=== PATIENT | female | born 2000 | race Caucasian/White ===

== ENCOUNTER 2024-03-18 00:38 | Outpatient (CLI) | payer OTHER ==
[~2024-03-18] VITALS: Ht 170.2 cm; Wt 84.1 kg
--- NOTE | 2024-03-18 00:50 | NUR ---
PT ARRIVED TO [facility] PER WITH S.O. WITH COMPLAINT OF CONTRACTIONS STARTING TO BECOME MORE REGULAR ABOUT 4-5 HOURS AGO. REPORTS ACTIVE MOVEMENT. DENIES ROM. STATES SHE HAD A LITTLE SPOTTING AFTER SVE IN OFFICE IN THE MORNING. STATES SHE WAS 3CM DILATED. PT TO BR TO VOID THEN PLACED ON MONITOR. [id number] ON. PT STATES SHE HAS RECEIVED CARE FOR WHOLE AT [facility] WITH CLAUDIA JANE CNM. DENIES ANY COMPLICATIONS WITH . STATES THAT SHE PASSED HER GTT AND IS GBS NEGATIVE. CONSENT WILL BE SIGNED FOR RELEASE OF INFORMATION FROM [facility]. STATES THAT SHE DOES NOT WANT TO DELIVER ON [facility] BECAUSE HER S.O. WAS NOT GOING TO BE ALLOWED IN DELIVERY ROOM. STATES SHE WAS SCHEDULED TO BE INDUCED ON 03/18 BUT IF SHE WENT INTO LABOR PRIOR TO THAT SHE PLANNED TO DELIVER ELSEWHERE. DISCUSSED POC AND EVAL FOR LABOR.
[2024-03-18 00:55] VITALS: BP 132/80; PULSE 92; TEMP 98
[2024-03-18] MEDS ORDERED: LR 1,000 ML IV PRN (01:00)
[2024-03-18] MEDS ORDERED: PRENATAL TABLET PO (01:22)
[2024-03-18 02:45] VITALS: BP 132/83; PULSE 78
== END 2024-03-18 02:50 | disposition home or self-care (01) ==
LOC: LDRO 00:38 → LDR 01:00 → LDRO 02:50
DX: O47.1 False labor at or after 37 completed weeks of gestation (principal)
CPT/HCPCS: OP

== ENCOUNTER 2024-03-18 15:31 | Outpatient (CLI) | payer OTHER ==
[2024-03-18] VITALS (7 sets, daily range): BP systolic 116–134; BP diastolic 62–89; PULSE 67–100; TEMP 98.1
[~2024-03-18] VITALS: Ht 170.2 cm; Wt 84.1 kg
[~2024-03-18 15:31] MED LIST: PRENATAL TABLET PO
--- NOTE | 2024-03-18 15:40 | NUR ---
PATIENT AMBUALTORY TO UNIT WITH FATHER OF BABY. PATIENT REPORTS LOSING MUCUS PLUG AT NOON AND CONTRACTIONS EVERY 5-7 MINUTES SINCE THEN. NO LEAKING OF FLUID OR VAGINAL BLEEDING, AND GOOD MOVEMENT. NO RECORDS DUE TO PATIENT BEING SEEN AT [facility]. SVE /1.
[2024-03-18] MEDS ORDERED: LR 1,000 ML IV PRN (16:45)
[2024-03-18 17:41] LABS: COLLECTION METHOD CLEAN CATCH
[2024-03-18 17:45] LABS: BASO % 0.2 % (0.0-2.0); EOS % 0.4 % (0.0-4.0); GRAN # 6.1 K/mm3 (1.4-6.5); GRAN % 71.8 % (42.2-75.2); HEMATOCRIT 39.6 % (37.0-47.0); HEMOGLOBIN 13.4 g/dl (12.5-16.0); LYMPH # 1.3 K/mm3 (1.2-3.4); LYMPH % 15.5 % (20.0-51.0); MEAN CELL VOLUME 88 fl (80.0-100.0); MEAN CORPUSCULAR HEMOGLOBIN 30 pg (27-31); MEAN CORPUSCULAR HGB CONC 34 g/dl (33.0-37.0); MEAN PLATELET VOLUME 12.4 fl (7.4-10.4); MONO % 11.7 % (1.7-9.3); PLATELET COUNT 144 K/mm3 (130-400); RED BLOOD COUNT 4.49 M/mm3 (4.10-5.30); REDCELL DISTRIBUTION WIDTH-CV 13.2 % (11.5-14.5)
[2024-03-18 17:52] LABS: PH 6.5 (5.0-8.5); URINE APPEARANCE CLEAR (CLEAR/HAZY); URINE BLOOD NEGATIVE (NEGATIVE); URINE COLOR YELLOW (YELLOW); URINE GLUCOSE NEGATIVE (NEGATIVE); URINE KETONE NEGATIVE (NEGATIVE); URINE NITRATE NEGATIVE (NEGATIVE); URINE PROTEIN(semi-quant) NEGATIVE (NEGATIVE); URINE UROBILINOGEN 0.2 E.U/dL (0.2-1.0)
[2024-03-18 18:08] LABS: TRICYCLIC ANTIDEPRESS URINE NEGATIVE (NEGATIVE)
[2024-03-18 18:18] LABS: ALBUMIN 2.9 g/dL (3.5-5.0); BILIRUBIN,TOTAL 0.4 mg/dL (0.2-1.2); CALCIUM 9.1 mg/dL (8.4-10.2); CREATININE, serum 0.76 mg/dL (0.57-1.11); POTASSIUM 3.9 mEq/L (3.5-4.5); TOTAL PROTEIN 6.7 g/dl (6.2-8.1)
--- NOTE | 2024-03-18 18:25 | NUR ---
GRASS CUTTER COMES TO NURSES STATION AND REPORTS PRENATALS WERE IN DESK DRAWER. PRENATALS FOUND AND UPDATED ON CARE
[2024-03-18 18:30] LABS: HIV 1/2 Antibodies Non-Reactive; HIV-1p24 Antigen Non-Reactive
[2024-03-18 22:34] LABS: HEPATITIS B SURFACE ANTIGEN Negative (Negative)
--- NOTE | 2024-03-19 12:03 | NUR ---
SW received a referral for patient with the following comment: screening for presense of illegal drugs in expectant mother. SW presented to LDR area to speak to nurse regarding the referral after a thorough review of electronic chart. Which revealed toxicology negative report. Nurse provided that there was no self reporting of illegal substance, nor indication of illegal substance use. Nurse confirmed that there were labs that were placed in for order due to patient not being a [facility] patient, but a [facility] patient. Patient is no longer at this facility, and nurse confirms no concerns of illegal substance use upon departure
== END 2024-03-18 19:15 | disposition home or self-care (01) ==
LOC: LDRO 15:31
PROVIDERS: Obstetrics & Gynecology
DX: O26.893 Other specified pregnancy related conditions, third trimester (principal); Z3A.40 40 weeks gestation of pregnancy
CPT/HCPCS: J7120